=== PATIENT | male | born 1980 | race Caucasian/White ===

== ENCOUNTER 2024-11-24 11:50 | Outpatient (CLI) | payer MEDICAID | END 2024-11-24 23:59 | disposition home or self-care (01) | LOC: MRI02 11:50 | PROVIDERS: ATTEND Pediatrics Sports Medicine | DX: M94.261 Chondromalacia, right knee (principal); M25.461 Effusion, right knee; M25.561 Pain in right knee | CPT/HCPCS: 73721 ==